=== PATIENT | male | born 1965 | race Caucasian/White ===

== ENCOUNTER 2017-09-29 13:43 | Emergency (ER) | payer OTHER ==
--- NOTE | 2017-09-29 13:58 | EDPHYS ---
Physician Documentation [facility] Name: Nish Huitron Age: 51 yrs Sex: Male : 1965 Arrival Date: 09/29/2017 Time: 13:45 Bed 2 Private MD: ED Physician Rafi Elizabeth HPI: 09/29 13:53 This 51 yrs old Male presents to ER via EMS with complaints of High Blood rn Pressure. 13:53 The patient has elevated blood pressure and discovered this work. Onset: The rn symptoms/episode began/occurred at an unknown time. Modifying factors:. Severity of symptoms: At its worst the blood pressure was moderate, in the emergency department the blood pressure is improved. The patient has experienced similar episodes in the past. Reports at work, fell down, braced himself with arms, no head injury, no complaints, no deformities, ambulatory, not on blood thinners, transported for protocol and high blood pressure, states always has high bp, takes meds, no chest pain/headache/neuro complaint. . Historical: - Allergies: 13:49 No Known Allergies; hb - Home Meds: 13:49 lisinopril-hydrochlorothiazide 20-12.5 mg oral tab 1 tab once daily [Active]; hb - PMHx: 13:49 Hypertension; hb - PSHx: 13:49 None; hb - Immunization history:: Adult Immunizations up to date. - Social history:: Smoking status: Patient/guardian denies using tobacco. - Ebola Screening: : No symptoms or risks identified at this time. - Family history:: not pertinent. - Hospitalizations: : No recent hospitalization is reported. ROS: 13:53 Constitutional: Negative for fever, chills, and weight loss, Eyes: Negative for injury, rn pain, redness, and discharge, Neck: Negative for injury, pain, and swelling, Cardiovascular: Negative for chest pain, palpitations, and edema, Respiratory: Negative for shortness of breath, cough, wheezing, and pleuritic chest pain, Abdomen/GI: Negative for abdominal pain, nausea, vomiting, diarrhea, and constipation, Back: Negative for injury and pain, MS/Extremity: Negative for injury and deformity, Skin: Negative for injury, rash, and discoloration, Neuro: Negative for headache, weakness, numbness, tingling, and seizure. Exam: 13:53 Constitutional: This is a well developed, well nourished patient who is awake, alert, rn and in no acute distress. Head/Face: Normocephalic, atraumatic. Eyes: Pupils equal round and reactive to light, extra-ocular motions intact. Lids and lashes normal. Conjunctiva and sclera are non-icteric and not injected. Cornea within normal limits. Periorbital areas with no swelling, redness, or edema. Neck: Trachea midline, no thyromegaly or masses palpated, and no cervical lymphadenopathy. Supple, full range of motion without nuchal rigidity, or vertebral point tenderness. No Meningismus. Cardiovascular: Regular rate and rhythm with a normal S1 and S2. No gallops, murmurs, or rubs. Normal PMI, no JVD. No pulse deficits. Respiratory: Lungs have equal breath sounds bilaterally, clear to auscultation and percussion. No rales, rhonchi or wheezes noted. No increased work of breathing, no retractions or nasal flaring. Abdomen/GI: Soft, non-tender, with normal bowel sounds. No distension or tympany. No guarding or rebound. No evidence of tenderness throughout. Back: No spinal tenderness. No costovertebral tenderness. Full range of motion. MS/ Extremity: Pulses equal, no cyanosis. Neurovascular intact. Full, normal range of motion. Equal circumference. Neuro: Awake and alert, GCS 15, oriented to person, place, time, and situation. Cranial nerves II-XII grossly intact. Motor strength 5/5 in all extremities. Sensory grossly intact. Cerebellar exam normal. Vital Signs: 13:48 BP 199 / 101; Pulse 102; Resp 18; Temp 98.3; Pulse Ox 100% on R/A; Pain 0/10; hb 13:51 BP 163 / 98; hb MDM: 13:52 Patient medically screened. rn 13:53 Differential diagnosis: hypertensive crisis, Malignant HTN, asymptomatic HTN, fall. rn Data reviewed: vital signs, nurses notes, and as a result, I will discharge patient. Counseling: I had a detailed discussion with the patient and/or guardian regarding: the historical points, exam findings, and any diagnostic results supporting the discharge/admit diagnosis, the need for outpatient follow up, to return to the emergency department if symptoms worsen or persist or if there are any questions or concerns that arise at home. Response to treatment: the patient's symptoms have mildly improved after treatment, and as a result, I will discharge patient. Special discussion: I discussed with the patient/guardian in detail that at this point there is no indication for admission to the hospital. It is understood, however, that if the symptoms persist or worsen the patient needs to return immediately for re-evaluation. Administered Medications: No medications were administered Disposition: 09/29/17 13:57 Discharged to Home. Impression: Asymptomatic Hypertension, Fall. - Condition is Stable. - Discharge Instructions: Hypertension. - Medication Reconciliation Form, Thank You Letter, Antibiotic Education, Prescription Opioid Use form. - Follow up: Private Physician; When: As needed; Reason: Recheck today's complaints, Re-evaluation by your physician. - Problem is new. - Symptoms have improved. Signatures: Ruthie Cedeno RN RN sv Nieto, Roman, MD MD rn Baxter, Heather, RN RN Corrections: (The following items were deleted from the chart) 14:08 13:57 09/29/2017 13:57 Discharged to Home. Impression: Asymptomatic Hypertension; Fall. sv Condition is Stable. Forms are Medication Reconciliation Form, Thank You Letter, Antibiotic Education, Prescription Opioid Use. Follow up: Private Physician; When: As needed; Reason: Recheck today's complaints, Re-evaluation by your physician. Problem is new. Symptoms have improved. rn
--- NOTE | 2017-09-29 13:58 | ER ---
Nurse's Notes [facility] Name: Nish Huitron Age: 51 yrs Sex: Male : 1965 Arrival Date: 09/29/2017 Time: 13:45 Bed 2 Private MD: Diagnosis: Asymptomatic Hypertension;Fall Presentation: 09/29 13:45 Presenting complaint: EMS states: Slipped while moving a drum at work, went to medic tent to get cleared to go back to work, was found to have elevated BP 210/110. Denies pain/SOB/injury. Hx HTN. Transition of care: patient was not received from another setting of care. Onset of symptoms was September 29, 2017. Risk Assessment: Do you want to hurt yourself or someone else? Patient reports no desire to harm self or others. Initial Sepsis Screen: Does the patient meet any 2 criteria? No. Patient's initial sepsis screen is negative. Does the patient have a suspected source of infection? No. Patient's initial sepsis screen is negative. Care prior to arrival: None. 13:45 Method Of Arrival: EMS: [facility] 13:45 Acuity: SHAISTA 3 hb Historical: - Allergies: 13:49 No Known Allergies; hb - Home Meds: 13:49 lisinopril-hydrochlorothiazide 20-12.5 mg oral tab 1 tab once daily [Active]; hb - PMHx: 13:49 Hypertension; hb - PSHx: 13:49 None; hb - Immunization history:: Adult Immunizations up to date. - Social history:: Smoking status: Patient/guardian denies using tobacco. - Ebola Screening: : No symptoms or risks identified at this time. - Family history:: not pertinent. - Hospitalizations: : No recent hospitalization is reported. Screenin:50 Abuse screen: Denies threats or abuse. Denies injuries from another. Nutritional hb screening: No deficits noted. Tuberculosis screening: No symptoms or risk factors identified. Fall Risk None identified. Assessment: 13:50 General: Appears in no apparent distress. Behavior is calm, cooperative. Pain: Denies hb pain. Neuro: Level of Consciousness is awake, alert, obeys commands, Oriented to person, place, time, situation. Cardiovascular: Heart tones S1 S2 present Capillary refill < 3 seconds Patient's skin is warm and dry. Respiratory: Airway is patent Trachea midline Respiratory effort is even, unlabored, Respiratory pattern is regular, symmetrical, Breath sounds are clear bilaterally. GI: No signs and/or symptoms were reported involving the gastrointestinal system. : No signs and/or symptoms were reported regarding the genitourinary system. EENT: No signs and/or symptoms were reported regarding the EENT system. Derm: No signs and/or symptoms reported regarding the dermatologic system. Skin is intact, is healthy with good turgor, Skin is pink, warm \T\ dry. Musculoskeletal: No signs and/or symptoms reported regarding the musculoskeletal system. Vital Signs: 13:48 BP 199 / 101; Pulse 102; Resp 18; Temp 98.3; Pulse Ox 100% on R/A; Pain 0/10; hb 13:51 BP 163 / 98; hb ED Course: 13:45 Patient arrived in ED. hb 13:48 Triage completed. hb 13:48 Arm band placed on right wrist. hb 13:52 Rafi Eliazbeth MD is Attending Physician. rn 13:53 Patient has correct armband on for positive identification. Placed in gown. Bed in low hb position. Call light in reach. Side rails up X 1. Administered Medications: No medications were administered Outcome: 13:57 Discharge ordered by . rn 14:08 Patient left the ED. sv Signatures: Ruthie Cedeno RN BAKARI Rafi Elizabeth MD MD rn Baxter, Heather, RN RN
== END 2017-09-29 14:08 | disposition home or self-care (01) ==
LOC: ER 13:43
DX: I10 Essential (primary) hypertension (principal)
CPT/HCPCS: 99282